=== PATIENT | female | born 1945 | race Hispanic/Latino ===

== ENCOUNTER 2018-03-24 14:57 | Emergency (ER) | payer MEDICARE, SELFPAY ==
--- NOTE | 2018-03-24 15:03 | ED.LOWEXIN ---
HPI - Extremity Injury (Lower) <Samantha King PA-C - Last Filed: 03/24/18 19:42> General Chief Complaint: Extremity Injury, Lower Stated Complaint: Left side hip pain Time Seen by Provider: 03/24/18 15:02 Source: patient Mode of arrival: ambulatory Limitations: no limitations History of Present Illness HPI Narrative: Patient complains of onset of left hip pain 3 days ago. She noticed this upon awakening. She denies any trauma, states she usually walks but had not been walking in a couple of weeks prior due to just being busy. She denies any swelling in the lower leg. She denies any pain in her back or knee. She states that pain is worse with walking, and also moving from sit to stand when she feels quite stiff. She states it is better lying still and does not tend to bother her at rest. She can also have nighttime pain. She has not tried medication heat or ice for this. She denies any other new complaints such as fever, rash, chest pain or dyspnea. States she came here mainly due to not being able to see PCP Related Data Home Medications Medication Instructions Recorded Confirmed MULTIVITAMIN #0 04/03/13 cholecalciferol (vitamin D3) 2,000 iu OR BID #0 12/13/17 03/24/18 [Vitamin D3] magnesium oxide 400 mg OR BID #0 12/13/17 Previous Rx's Medication Instructions Recorded metformin [Glucophage] 500 mg PO QDAY #90 tab 04/19/17 hydrochlorothiazide 25 mg PO QDAY #90 tab 08/22/17 Glucose: Home Monitoring Kit kit QDAY #1 09/06/17 Glucose: Test Strips str SEECOM QDAY #100 09/06/17 Lancet: Device units SEECOM QDAY #100 09/06/17 prazosin [Minipress] 1 mg NG HS #90 cap 09/06/17 simvastatin 40 mg PO HS #90 tab 09/07/17 lurasidone 20 mg tablet 20 mg PO HS #90 tab 03/17/18 Allergies Allergy/AdvReac Type Severity Reaction Status Date / Time iodine Allergy Severe HIVES, Verified 03/24/18 15:58 ANAPHYLAXIS cefotetan Allergy Mild RASH, EDEMA Verified 03/24/18 15:58 morphine AdvReac Mild HALLUCINATI Verified 03/24/18 15:58 ONS Review of Systems <Samantha King PA-C - Last Filed: 03/24/18 19:42> Review of Systems All systems reviewed & are unremarkable except as noted in HPI and below Exam <Samantha King PA-C - Last Filed: 03/24/18 19:42> Narrative Exam Narrative: GENERAL APPEARANCE: Patient sitting comfortably, in no distress. LUNGS: Clear to auscultation bilaterally. HEART: Rate and rhythm regular without murmur, normal S1 and S2, no S3 or S4. EXTREMITIES: No cyanosis or edema MUSCULOSKELETAL: Mild tenderness over the left anterior and lateral hip and greater trochanter. No tenderness over the posterior hip. No tenderness over the lumbosacral spine or SI joint. Full range of motion at the left hip and knee, tender with forced internal rotation and hip flexion against resistance, strength appears to be intact DERM: No exanthem MDM - Extremity Injury (Lower) <Samantha King PA-C - Last Filed: 03/24/18 19:42> Imaging Data hip xr: Radiologist's impression: : 1945 Acct:[id number] Age/Sex: 72 / F Date of Service: 03/24/18 Loc: ED Accession Number: [id number] Procedure: XR hip w pel if done LT 2V Ordering Provider: Samantha King P.A-C PROCEDURE: XR HIP W PEL IF DONE LT 2V INDICATIONS: 72 year-old female with left hip pain. TECHNIQUE: AP pelvis with lateral view(s) of the left hip(s). COMPARISON: [facility], [place], ABDOMEN/PELVIS WITH CONTRAST, 09/12/2008, 14:34. FINDINGS: Bones: No fractures or dislocations. Pelvic ring appears intact. No hip joint degeneration. No suspicious bony lesions. Soft tissues: The visualized bowel gas pattern is normal. No suspicious soft tissue calcifications. Several calcifications just superior to the medial right iliac wing are unchanged in position since August 2008, likely incidental phleboliths. IMPRESSION: No acute bony injury to the left hip and pelvic ring. Dictated by: Jeronimo García M.D. on 03/24/2018 at 15:48 Approved by: Jeronimo García M.D. on 03/24/2018 at 15:50 Course <Samantha King PA-C - Last Filed: 03/24/18 19:42> Orders Ordered: ED Orders 03/24/18 15:23 XR hip w pel if done LT 2V Stat Last Vital Signs Temp 99.4 F 03/24/18 15:08 Pulse 88 03/24/18 16:11 Resp 16 03/24/18 16:11 BP 109/41 L 03/24/18 16:11 Pulse Ox 98 03/24/18 16:11 <Cecilio Del Rio DO - Last Filed: 03/25/18 07:37> Orders Ordered: ED Orders 03/24/18 15:23 XR hip w pel if done LT 2V Stat Last Vital Signs Temp 99.4 F 03/24/18 15:08 Pulse 88 03/24/18 16:11 Resp 16 03/24/18 16:11 BP 109/41 L 03/24/18 16:11 Pulse Ox 98 03/24/18 16:11 Discharge Plan Departure Patient Disposition: Home, Self-Care Clinical Impression: Acute hip pain Discharge Date/Time: 03/24/18 16:15 Interventions: ED Discharge Assessment Last Done: 03/24/18 16:11 Instructions: DI for Hip Pain Activity Restrictions/Additional Instructions: You should return if you have acutely worsening symptoms. There is no acute problem on your x-ray today such as a fracture, nor any arthritis or joint abnormality seen, so this is most likely to be a bursitis or tendinitis of your hip. Kvsy-vit-mhlugyw pain medicine such as 1 Aleve twice daily for a few days or Tylenol as needed may be helpful. Ice and heat may be helpful as well as rest. You should follow up with your PCP office next week for recheck and to determine whether any other testing or a referral for therapy may be needed. Prescriptions: No Action MULTIVITAMIN Qty: 0 RF: 0 metformin [Glucophage] 500 MG tablet 500 mg PO QDAY Qty: 90 RF: 3 hydrochlorothiazide 25 MG tablet 25 mg PO QDAY Qty: 90 RF: 3 prazosin [Minipress] 1 MG capsule 1 mg NG HS Qty: 90 RF: 1 Glucose: Home Monitoring Kit QDAY Qty: 1 RF: 1 Glucose: Test Strips SEECOM QDAY Qty: 100 RF: 11 Lancet: Device SEECOM QDAY Qty: 100 RF: 11 simvastatin 40 MG tablet 40 mg PO HS Qty: 90 RF: 3 magnesium oxide 400 MG capsule 400 mg OR BID Qty: 0 RF: 0 cholecalciferol (vitamin D3) [Vitamin D3] 2,000 UNIT capsule 2,000 iu OR BID Qty: 0 RF: 0 lurasidone [Latuda] 20 mg tablet 20 mg PO HS Qty: 90 RF: 0 Referrals: Ashley Kyle MD [Primary Care Provider] -
[2018-03-24 15:08] VITALS: BP 134/69; PULSE 94; RESP 15; TEMP 37.4; O2SAT 96; BMI 30.2
--- NOTE | 2018-03-24 15:23 | DI.RAD.S_ITS ---
PROCEDURE: XR HIP W PEL IF DONE LT 2V INDICATIONS: 72 year-old female with left hip pain. TECHNIQUE: AP pelvis with lateral view(s) of the left hip(s). COMPARISON: [facility], [place], ABDOMEN/PELVIS WITH CONTRAST, 09/12/2008, 14:34. FINDINGS: Bones: No fractures or dislocations. Pelvic ring appears intact. No hip joint degeneration. No suspicious bony lesions. Soft tissues: The visualized bowel gas pattern is normal. No suspicious soft tissue calcifications. Several calcifications just superior to the medial right iliac wing are unchanged in position since August 2008, likely incidental phleboliths. IMPRESSION: No acute bony injury to the left hip and pelvic ring. Dictated by: Jeronimo García M.D. on 03/24/2018 at 15:48 Approved by: Jeronimo García M.D. on 03/24/2018 at 15:50
--- NOTE | 2018-03-24 16:01 | PC.NURSE ---
No known injury. Patient began experiencing pain with weight bearing. States there is slight pain that radiates down the left leg.
[2018-03-24 16:11] VITALS: BP 109/41; PULSE 88; RESP 16; O2SAT 98
== END 2018-03-24 16:15 | disposition home or self-care (01) ==
PROVIDERS: Emergency Provider Internal Medicine; PCP Family Medicine
DX: M25.552 Pain in left hip (principal)
CPT/HCPCS: 73502; 99282; 99283

== ENCOUNTER 2018-07-13 05:00 | Emergency (ER) | payer MEDICARE, SELFPAY ==
[2018-07-13 05:08] VITALS: BP 123/79; PULSE 88; RESP 20; TEMP 36.7; O2SAT 98; BMI 30.2
--- NOTE | 2018-07-13 05:46 | ED_ITS ---
HPI - Back Pain/Injury General Chief Complaint: Back Pain/Injury Stated Complaint: Pain in lower back Time Seen by Provider: 07/13/18 05:08 Source: patient Mode of arrival: ambulatory Limitations: no limitations History of Present Illness HPI Narrative: 73-year-old female with history of PTSD and bipolar presents with bilateral thoracic pain in the absence of injury. She does admit to recent bouts sneezing and coughing and denies any overuse injury. She denies dysuria, frequency or urgency. She denies any hematuria nor fever or chills. She denies any chest pain or shortness of breath MD Complaint: back pain Onset (ago): hour(s) Duration: constant Similar Symptoms Previously: Yes Location: thoracic spine Severity: moderate Quality: aching Radiation: none Relieving factors: immobilization Exacerbating factors: sitting upright, walking, deep breaths and coughing/ sneezing Context: unknown Associated symptoms: denies other symptoms Related Data Home Medications Medication Instructions Recorded Confirmed cholecalciferol (vitamin D3) 2,000 iu OR BID #0 12/13/17 06/28/18 [Vitamin D3] Previous Rx's Medication Instructions Recorded hydrochlorothiazide 25 mg PO QDAY #90 tab 08/22/17 Glucose: Home Monitoring Kit kit QDAY #1 09/06/17 Glucose: Test Strips str SEECOM QDAY #100 09/06/17 Lancet: Device units SEECOM QDAY #100 09/06/17 prazosin [Minipress] 1 mg NG HS #90 cap 09/06/17 simvastatin 40 mg PO HS #90 tab 09/07/17 naproxen 250 mg tablet 250 mg PO BID PRN #60 tab 05/22/18 lurasidone 20 mg tablet 20 mg PO HS #90 tab 06/23/18 metformin [Glucophage] 500 mg PO QDAY #90 tab 06/27/18 lithium carbonate 300 mg capsule 300 mg PO BEDTIME #14 cap 06/28/18 methocarbamol [Robaxin] 500 mg PO QID #14 tab 07/13/18 Allergies Allergy/AdvReac Type Severity Reaction Status Date / Time iodine Allergy Severe HIVES, Verified 07/13/18 05:48 ANAPHYLAXIS cefotetan Allergy Mild RASH, EDEMA Verified 07/13/18 05:48 morphine AdvReac Mild HALLUCINATI Verified 07/13/18 05:48 ONS Review of Systems Review of Systems All systems reviewed & are unremarkable except as noted in HPI and below Constitutional Denies chills, Denies fever(s), Denies lethargy and Denies weakness Eyes Denies change in vision, Denies eye discharge, Denies irritation and Denies loss of vision ENT Ears, Nose, Mouth, and Throat: Denies change in voice, Denies neck pain and Denies sore throat Cardiovascular Denies chest pain, Denies irregular heart rhythm, Denies lightheadedness, Denies palpitations, Denies dyspnea, Denies dyspnea on exertion and Denies orthopnea Respiratory Denies cough, Denies dyspnea, Denies dyspnea on exertion and Denies wheezing Gastrointestinal Gastrointestinal: Denies abdominal pain, Denies change in bowel habits, Denies diarrhea, Denies nausea and Denies vomiting Genitourinary Denies hematuria, Denies flank pain, Denies urinary incontinence and Denies urinary urgency Musculoskeletal Reports back pain and Denies neck pain Integumentary/Breasts Denies pruritus, Denies erythema, Denies rash and Denies wounds Neurologic Denies confusion, Denies loss of vision and Denies weakness Psychiatric Denies anxiety, Denies confusion, Denies depression, Denies homicidal ideation and Denies suicidal ideation Endocrine Denies palpitations Hematologic/Lymphatic Denies easy bruising Allergic/Immunologic Denies wheezing PFSH Medical History Depression (Chronic) Prediabetes (Chronic) Suicide attempt (Resolved) Surgical History History of cataract removal with insertion of prosthetic lens (Resolved) Status post laparoscopic cholecystectomy (Resolved) Family History Mother Leukemia DMII (diabetes mellitus, type 2) Father Leukemia Social History Smoking Status: Current every day smoker Exam Narrative Exam Narrative: GEN: AOx3 and in mild distress EYES: Pupils are equal, round, and reactive to light and accommodation. Extraoccular muscles are intact bilaterally. There is no subconjunctival hemorrhage or exudate. CHEST: Lungs are clear to auscultation bilaterally and free of wheezes, rales, or rhonchi. Heart rate is regular rhythm, there are no murmurs, clicks, rubs, or gallops. There is no chest wall tenderness. ABD: Abdomen is soft and nontender. There is no guarding or rebound. Bowel sounds are normal in all 4 quadrants. There is no mass or organomegaly. EXT: Full painless ROM of all extremities with no loss of sensation or strength. SKIN: Warm, pink, and dry. No erythema or rash BACK: disulfurizer tender but free of any obvious external abnormalities. Patient exam notes decreased range of motion and muscle spasm, but no CVA tenderness, or vertebral point tenderness. There are no symptoms of cauda equina such as saddle anesthesia, and decreased reflexes, decreased sensation or strength. Initial Vital Signs Initial Vital Signs: Vital Signs Temperature 98.1 F 07/13/18 05:08 Pulse Rate 88 07/13/18 05:08 Respiratory Rate 20 07/13/18 05:08 Blood Pressure 123/79 H 07/13/18 05:08 Pulse Oximetry 98 07/13/18 05:08 Course Orders Ordered: ED Orders 07/13/18 05:40 Urine Microscopic Stat Vital Signs - 8 hr 07/13/18 05:08 07/13/18 06:22 Temperature 98.1 F 98.1 F Pulse Rate 88 88 Respiratory Rate 20 20 Blood Pressure 123/79 H 123/79 H Pulse Oximetry 98 98 MDM - Back Pain/Injury Lab Data Lab Results 07/13/18 Range/Units 05:40 Urine RBC 1-5/hpf (0-5/HPF) Urine WBC None seen (0-5/HPF) Ur Squamous Epith Cells 0-1 /hpf Urine Bacteria None seen (None) Ur Culture Indicated? Cult not indicated Micro UA Comment Not Reportable Discharge Plan Departure Patient Disposition: Home Clinical Impression: Thoracic back pain Discharge Date/Time: 07/13/18 06:48 Interventions: ED Discharge Assessment Last Done: 07/13/18 06:45 Instructions: DI for Thoracic Back Pain Activity Restrictions/Additional Instructions: *You have been diagnosed with [ acute thoracic back pain ] *What to do: *Take medications as directed: Tylenol or Motrin for pain in addition to the muscle relaxer provided which has been electronically transmitted to [facility] *Follow up with your primary care provider in 2-3 days, call for an appointment. Let them know you were seen in the Emergency Department and that we ask that you be seen in follow up *Return to ER if you should have any new, worsening or concerning symptoms , such as [ ] Prescriptions: New methocarbamol [Robaxin] 500 mg tablet 500 mg PO QID Qty: 14 RF: 0 No Action lithium carbonate 300 mg capsule 300 mg PO BEDTIME Qty: 14 RF: 0 hydrochlorothiazide 25 MG tablet 25 mg PO QDAY Qty: 90 RF: 3 prazosin [Minipress] 1 MG capsule 1 mg NG HS Qty: 90 RF: 1 Glucose: Home Monitoring Kit QDAY Qty: 1 RF: 1 Glucose: Test Strips SEECOM QDAY Qty: 100 RF: 11 Lancet: Device SEECOM QDAY Qty: 100 RF: 11 simvastatin 40 MG tablet 40 mg PO HS Qty: 90 RF: 3 cholecalciferol (vitamin D3) [Vitamin D3] 2,000 UNIT capsule 2,000 iu OR BID Qty: 0 RF: 0 lurasidone [Latuda] 20 mg tablet 20 mg PO HS Qty: 90 RF: 0 metformin [Glucophage] 500 mg tablet 500 mg PO QDAY Qty: 90 RF: 3 naproxen 250 mg tablet 250 mg PO BID PRN (Reason: pain) Qty: 60 RF: 0
[2018-07-13 06:00] LABS: Bacteria Urine None Seen; WBC Urine None Seen (0-5/HPF)
[2018-07-13 06:13] LABS: Culture Indicated Urine Cult Not Indicated; RBC Urine 1-5/HPF (0-5/HPF); Squamous Epithelial Cell Urine 0-1 /HPF
[2018-07-13 06:22] VITALS: BP 123/79; PULSE 88; RESP 20; TEMP 36.7; O2SAT 98; BMI 30.2
== END 2018-07-13 06:48 | disposition home or self-care (01) ==
PROVIDERS: Emergency Provider Emergency Medicine; PCP Family Medicine
DX: M54.6 Pain in thoracic spine (principal)
CPT/HCPCS: 81003; 81015; 99282

== ENCOUNTER → 2018-11-15 14:44 | Outpatient (CLI) | payer MEDICARE, SELFPAY ==
[2018-11-15 15:39] LABS: Hemoglobin A1C% w Est Avg Glu 5.8 % (4.0-6.0)
[2018-11-15 15:40] LABS: BUN Creatinine Ratio 26.3 (6-22); Blood Urea Nitrogen 21 mg/dL (7-17); Carbon Dioxide 26 mmol/L (22-32); Chloride 103 mmol/L (98-107); Cholesterol 159 mg/dL (140-199); Estimated Glomerular Filt Rate > 60.0 mL/min (>60); Glucose 109 mg/dL (80-110); HDL Cholesterol 57 mg/dL (40-60); HEMOLYSIS 20 (0-50); LDL Cholesterol Calculated 76 mg/dL (<100); Potassium 3.7 mmol/L (3.4-5.1); Sodium 138 mmol/L (137-145); Triglycerides 130 mg/dL (35-150)
[2018-11-15 16:54] LABS: Vitamin D 25 Hydroxy (D3) 29.5 ng/mL (30.0-100.0)
== END ==
PROVIDERS: PCP Student in an Organized Health Care Education/Training Program; Visit Provider Student in an Organized Health Care Education/Training Program
DX: E11.9 Type 2 diabetes mellitus without complications (principal); E78.2 Mixed hyperlipidemia; E55.9 Vitamin D deficiency, unspecified
CPT/HCPCS: 36415; 80048; 80061; 82306; 83036

== ENCOUNTER 2019-02-10 11:05 | Emergency (ER) | payer MEDICARE, SELFPAY ==
[2019-02-10] VITALS (7 sets, daily range): BP systolic 121–148; BP diastolic 57–71; PULSE 74–85; RESP 18–22; TEMP 37.7–38.5; O2SAT 94–99
[2019-02-10 11:57] LABS: Influenza A and B by PCR Rapid Negative (Negative)
--- NOTE | 2019-02-10 12:06 | DI.RAD.S_ITS ---
PROCEDURE: XR CHEST 2V INDICATIONS: cough, URI symptoms, fever, green sputum. Flu neg. TECHNIQUE: 2 views of the chest were acquired. COMPARISON: [facility], , CHEST 1 VIEW, 08/06/2014, 14:17. FINDINGS: Surgical changes and devices: None. Lungs and pleura: Lungs are clear. No pleural effusions or pneumothorax. Mediastinum: Mediastinal contours are normal. The aorta is tortuous and unfolded. Heart size is normal. Bones and chest wall: No suspicious bony abnormalities. Soft tissues appear unremarkable. IMPRESSION: No evidence acute pulmonary process. Dictated by: Rocco Murillo M.D. on 02/10/2019 at 12:44 Approved by: Rocco Murillo M.D. on 02/10/2019 at 12:44
--- NOTE | 2019-02-10 12:44 | ED.URI ---
HPI - URI/Sore Throat General Chief Complaint: Upper Respiratory Symptoms Stated Complaint: CONGESTION/CHILLS Time Seen by Provider: 02/10/19 11:39 Source: patient Mode of arrival: ambulatory Limitations: no limitations History of Present Illness HPI Narrative: Patient is a 73-year-old female who presents with cough and body aches. She said last week she had laryngitis she was getting better however this week she tried going back to work she now has a cough that is worse at night she overall feels worse than she did last week. Her influenza was tested and is already negative. She has no chest pain or shortness of breath. She has had any nausea vomiting. MD Complaint: fever and cough Relieving factors: nothing Exacerbating factors: nothing Related Data Home Medications Medication Instructions Recorded Confirmed Aspirin PO 11/15/18 01/16/19 Previous Rx's Medication Instructions Recorded simvastatin 40 mg tablet 40 mg PO HS #90 tab 09/26/18 lurasidone 40 mg tablet 40 mg PO DAILY #90 tab 12/06/18 nicotine 14 mg/24 hr daily 1 patch TRANSDERMAL DAILY #14 each 01/16/19 transdermal patch nicotine 7 mg/24 hr daily 1 patch TRANSDERMAL Q24H #7 each 01/16/19 transdermal patch albuterol sulfate 1 puff INHALATION Q4-6H PRN #8 gram 02/10/19 Allergies Allergy/AdvReac Type Severity Reaction Status Date / Time iodine Allergy Severe HIVES, Verified 02/10/19 11:22 ANAPHYLAXIS cefotetan Allergy Mild RASH, EDEMA Verified 02/10/19 11:22 morphine AdvReac Mild HALLUCINATI Verified 02/10/19 11:22 ONS Review of Systems Review of Systems ROS Unobtainable: All systems reviewed & are unremarkable except as noted in HPI and below Constitutional Reports body ache(s), Reports chills, Reports fatigue, Denies frequent falls, Reports poor appetite and Reports weakness Eyes Denies change in vision, Denies eye discharge, Denies irritation and Denies loss of vision ENT Ears, Nose, Mouth, and Throat: Denies dizziness and Reports sore throat Cardiovascular Denies chest pain, Denies irregular heart rhythm, Denies lightheadedness, Denies palpitations, Denies dyspnea, Denies dyspnea on exertion and Denies orthopnea Respiratory Reports cough, Denies dyspnea, Denies dyspnea on exertion and Denies wheezing Gastrointestinal Gastrointestinal: Denies abdominal pain, Denies change in bowel habits, Denies diarrhea, Denies nausea and Denies vomiting Musculoskeletal Denies back pain, Denies muscle weakness, Denies numbness and Denies tingling Integumentary/Breasts Denies pruritus, Denies erythema, Denies rash and Denies wounds Neurologic Denies dizziness, Denies frequent falls, Denies loss of vision, Denies numbness, Denies tingling and Reports weakness Endocrine Reports fatigue and Denies palpitations Allergic/Immunologic Denies wheezing [facility] Medical History Depression (Chronic) Prediabetes (Chronic) Suicide attempt (Resolved) Surgical History History of cataract removal with insertion of prosthetic lens (Resolved) Status post laparoscopic cholecystectomy (Resolved) Family History (Updated 05/08/18 @ 14:50 by Namrata Haddad) Mother Leukemia DMII (diabetes mellitus, type 2) Father Leukemia Social History Smoking Status: Current every day smoker Family History Mother Leukemia DMII (diabetes mellitus, type 2) Father Leukemia Social History Smoking Status: Current every day smoker Exam Initial Vital Signs Initial Vital Signs: Vital Signs Temperature 99.9 F H 02/10/19 11:10 Pulse Rate 79 02/10/19 11:10 Respiratory Rate 22 02/10/19 11:10 Blood Pressure 142/68 H 02/10/19 11:10 Pulse Oximetry 96 02/10/19 11:10 GENERAL: Alert elderly female appears to not feel well HEENT: Head atraumatic,EOMI, pupils reactive, face symmetric, [moist] mucous membranes CARDIOVASCULAR: Regular rate and rhythm without murmurs, rubs or gallops. RESPIRATORY: Breath sounds equal bilaterally, no wheezes rales or rhonchi. Deep cough with deep breathing ABDOMEN: Soft, nontender. Normoactive bowel sounds all 4 quadrants. No guarding or rebound. EXTREMITIES: Normal range of motion, no clubbing or edema. Neurovascularly intact NEUROLOGICAL: Alert and oriented x4.Normal gait and speech. SKIN: Warm, dry, no laceration, no petechiae, no rashes or lesions. Course Orders Ordered: ED Orders 02/10/19 11:15 Influenza A and B by PCR Rapid Stat 02/10/19 12:06 XR chest 2V Stat 02/10/19 13:22 Basic Metabolic Panel Stat Complete Blood Count AUTO DIFF Stat Discontinued Medications Albuterol/Ipratropium (Duoneb) 3 ml INH NOW ONE Stop: 02/10/19 12:58 Last Admin: 02/10/19 13:19 Dose: 3 ml Sodium Chloride (Normal Saline 0.9%) 1,000 mls @ 1,000 mls/hr IV BOLUS ONE Stop: 02/10/19 13:56 Last Admin: 02/10/19 13:38 Dose: 1,000 mls/hr Vital Signs - 8 hr 02/10/19 11:10 02/10/19 13:20 02/10/19 13:30 Temperature 99.9 F H Pulse Rate 79 74 74 Respiratory Rate 22 18 Blood Pressure 142/68 H Blood Pressure [Left Arm] 148/70 H Blood Pressure [Right Arm] 148/70 H Pulse Oximetry 96 99 95 02/10/19 13:33 02/10/19 13:34 02/10/19 14:30 Temperature Pulse Rate 78 78 75 Respiratory Rate Blood Pressure Blood Pressure [Left Arm] Blood Pressure [Right Arm] 138/57 L Pulse Oximetry 94 98 MDM - URI/Sore Throat Lab Data Attestation: I reviewed the patient's lab results. Result diagrams: 02/10/19 13:22 02/10/19 13:22 Lab Results 02/10/19 02/10/19 02/10/19 Range/Units 11:15 13:22 13:22 WBC 5.8 (4.5-11.0) X10^3/uL RBC 4.59 (4.0-5.2) X10^6/uL Hgb 14.3 (12.0-16.0) g/dL Hct 42.7 (36-46) % MCV 92.9 (80-100) fL MCH 31.2 (26-34) PG MCHC 33.6 (30-36) % RDW 15.4 H (11.6-14.8) % Plt Count 142 L (150-400) X10^3/uL Neut % (Auto) 72.5 (50-75) % Lymph % (Auto) 16.8 L (25-40) % [place] % (Auto) 9.5 (3-14) % Eos % (Auto) 0.3 L (2-4) % Baso % (Auto) 0.9 (0-2) % Neut # (Auto) 4200 (2823-7716) /uL Lymph # (Auto) 1000 L (2702-3410) /uL [place] # (Auto) 600 (0-900) /uL Eos # (Auto) 0 (0-450) /uL Baso # (Auto) 100 (0-100) /uL Sodium 137 (137-145) mmol/L Potassium 4.0 (3.4-5.1) mmol/L Chloride 101 (98-107) mmol/L Carbon Dioxide 27 (22-32) mmol/L BUN 14 (7-17) mg/dL Creatinine 0.70 (0.52-1.04) mg/dL Estimated GFR > 60.0 (>60) mL/min BUN/Creatinine Ratio 20.0 (6-22) Glucose 84 (80-110) mg/dL Calcium 9.1 (8.4-10.2) mg/dL Influenza A & B (PCR) Negative (Negative) Imaging Data Chest x-ray: Radiologist's impression: PROCEDURE: XR CHEST 2V INDICATIONS: cough, URI symptoms, fever, green sputum. Flu neg. TECHNIQUE: 2 views of the chest were acquired. COMPARISON: [facility], CHEST 1 VIEW, 08/06/2014, 14:17. FINDINGS: Surgical changes and devices: None. Lungs and pleura: Lungs are clear. No pleural effusions or pneumothorax. Mediastinum: Mediastinal contours are normal. The aorta is tortuous and unfolded. Heart size is normal. Bones and chest wall: No suspicious bony abnormalities. Soft tissues appear unremarkable. IMPRESSION: No evidence acute pulmonary process. Dictated by: Rocco Murillo M.D. on 02/10/2019 at 12:44 MDM Narrative Medical decision making narrative: Patient overall is feeling much better after albuterol. She has no signs pneumonia no leukocytosis. This is likely more of a bronchitis and upper respiratory like syndrome. Recommended albuterol at home.. She does have quite a deep nonproductive cough consistent with bronchitis, no antibiotics indicated at this time Discharge Plan Departure Patient Disposition: Home Clinical Impression: Upper respiratory infection Qualifiers: URI type: unspecified viral URI Qualified Code(s): J06.9 - Acute upper respiratory infection, unspecified Instructions: DI for Viral Upper Respiratory Infection -- Adult Activity Restrictions/Additional Instructions: *You have been diagnosed with upper respiratory viral infection *What to do: At this time no antibiotics are indicated. X-ray does not show any pneumonia you do not have influenza increase fluid, fever control *Continue to take medications as directed ALBUTEROL 1-2 puffs every 4 hours if needed for chest tightness or cough--> sent to [facility] in [place] Tylenol 650 mg every 4-6 hours if needed for fever Motrin 600 mg every 6-8 hours as needed fever *Follow up with your primary care provider in 2-3 days *Return to ER if you should have increasing shortness of breath, fever not controlled, inability to take in oral fluids or any new, worsening or concerning symptoms Prescriptions: New albuterol sulfate 90 mcg/actuation HFA aerosol inhaler 1 puff INHALATION Q4-6H PRN (Reason: shortness of breath or wheezing) Qty: 8 RF: 0 No Action simvastatin 40 mg tablet 40 mg PO HS Qty: 90 RF: 0 lurasidone [Latuda] 40 mg tablet 40 mg PO DAILY Qty: 90 RF: 1 nicotine 14 mg/24 hr patch 24 hour 1 patch Transdermal DAILY Qty: 14 RF: 0 nicotine 7 mg/24 hr patch 24 hour 1 patch Transdermal Q24H Qty: 7 RF: 0 Aspirin PO RF: 0 Referrals: Heron Sanchez MD [Primary Care Provider] -
--- NOTE | 2019-02-10 12:58 | ED_ITS ---
HPI - URI/Sore Throat General Chief Complaint: Upper Respiratory Symptoms Stated Complaint: CONGESTION/CHILLS Time Seen by Provider: 02/10/19 11:39 Source: patient Mode of arrival: ambulatory Limitations: no limitations History of Present Illness HPI Narrative: Patient is a 73-year-old female who presents with cough and body aches. She said last week she had laryngitis she was getting better however this week she tried going back to work she now has a cough that is worse at night she overall feels worse than she did last week. Her influenza was tested and is already negative. She has no chest pain or shortness of breath. She has had any nausea vomiting. MD Complaint: fever and cough Relieving factors: nothing Exacerbating factors: nothing Related Data Home Medications Medication Instructions Recorded Confirmed Aspirin PO 11/15/18 01/16/19 Previous Rx's Medication Instructions Recorded simvastatin 40 mg tablet 40 mg PO HS #90 tab 09/26/18 lurasidone 40 mg tablet 40 mg PO DAILY #90 tab 12/06/18 nicotine 14 mg/24 hr daily 1 patch TRANSDERMAL DAILY #14 each 01/16/19 transdermal patch nicotine 7 mg/24 hr daily 1 patch TRANSDERMAL Q24H #7 each 01/16/19 transdermal patch albuterol sulfate 1 puff INHALATION Q4-6H PRN #8 gram 02/10/19 Allergies Allergy/AdvReac Type Severity Reaction Status Date / Time iodine Allergy Severe HIVES, Verified 02/10/19 11:22 ANAPHYLAXIS cefotetan Allergy Mild RASH, EDEMA Verified 02/10/19 11:22 morphine AdvReac Mild HALLUCINATI Verified 02/10/19 11:22 ONS Review of Systems Review of Systems ROS Unobtainable: All systems reviewed & are unremarkable except as noted in HPI and below Constitutional Reports body ache(s), Reports chills, Reports fatigue, Denies frequent falls, Reports poor appetite and Reports weakness Eyes Denies change in vision, Denies eye discharge, Denies irritation and Denies loss of vision ENT Ears, Nose, Mouth, and Throat: Denies dizziness and Reports sore throat Cardiovascular Denies chest pain, Denies irregular heart rhythm, Denies lightheadedness, Denies palpitations, Denies dyspnea, Denies dyspnea on exertion and Denies orthopnea Respiratory Reports cough, Denies dyspnea, Denies dyspnea on exertion and Denies wheezing Gastrointestinal Gastrointestinal: Denies abdominal pain, Denies change in bowel habits, Denies diarrhea, Denies nausea and Denies vomiting Musculoskeletal Denies back pain, Denies muscle weakness, Denies numbness and Denies tingling Integumentary/Breasts Denies pruritus, Denies erythema, Denies rash and Denies wounds Neurologic Denies dizziness, Denies frequent falls, Denies loss of vision, Denies numbness, Denies tingling and Reports weakness Endocrine Reports fatigue and Denies palpitations Allergic/Immunologic Denies wheezing [facility] Medical History Depression (Chronic) Prediabetes (Chronic) Suicide attempt (Resolved) Surgical History History of cataract removal with insertion of prosthetic lens (Resolved) Status post laparoscopic cholecystectomy (Resolved) Family History (Updated 05/08/18 @ 14:50 by Namrata Haddad) Mother Leukemia DMII (diabetes mellitus, type 2) Father Leukemia Social History Smoking Status: Current every day smoker Family History Mother Leukemia DMII (diabetes mellitus, type 2) Father Leukemia Social History Smoking Status: Current every day smoker Exam Initial Vital Signs Initial Vital Signs: Vital Signs Temperature 99.9 F H 02/10/19 11:10 Pulse Rate 79 02/10/19 11:10 Respiratory Rate 22 02/10/19 11:10 Blood Pressure 142/68 H 02/10/19 11:10 Pulse Oximetry 96 02/10/19 11:10 GENERAL: Alert elderly female appears to not feel well HEENT: Head atraumatic,EOMI, pupils reactive, face symmetric, [moist] mucous membranes CARDIOVASCULAR: Regular rate and rhythm without murmurs, rubs or gallops. RESPIRATORY: Breath sounds equal bilaterally, no wheezes rales or rhonchi. Deep cough with deep breathing ABDOMEN: Soft, nontender. Normoactive bowel sounds all 4 quadrants. No guarding or rebound. EXTREMITIES: Normal range of motion, no clubbing or edema. Neurovascularly intact NEUROLOGICAL: Alert and oriented x4.Normal gait and speech. SKIN: Warm, dry, no laceration, no petechiae, no rashes or lesions. Course Orders Ordered: ED Orders 02/10/19 11:15 Influenza A and B by PCR Rapid Stat 02/10/19 12:06 XR chest 2V Stat 02/10/19 13:22 Basic Metabolic Panel Stat Complete Blood Count AUTO DIFF Stat Discontinued Medications Albuterol/Ipratropium (Duoneb) 3 ml INH NOW ONE Stop: 02/10/19 12:58 Last Admin: 02/10/19 13:19 Dose: 3 ml Sodium Chloride (Normal Saline 0.9%) 1,000 mls @ 1,000 mls/hr IV BOLUS ONE Stop: 02/10/19 13:56 Last Admin: 02/10/19 13:38 Dose: 1,000 mls/hr Vital Signs - 8 hr 02/10/19 11:10 02/10/19 13:20 02/10/19 13:30 Temperature 99.9 F H Pulse Rate 79 74 74 Respiratory Rate 22 18 Blood Pressure 142/68 H Blood Pressure [Left Arm] 148/70 H Blood Pressure [Right Arm] 148/70 H Pulse Oximetry 96 99 95 02/10/19 13:33 02/10/19 13:34 02/10/19 14:30 Temperature Pulse Rate 78 78 75 Respiratory Rate Blood Pressure Blood Pressure [Left Arm] Blood Pressure [Right Arm] 138/57 L Pulse Oximetry 94 98 MDM - URI/Sore Throat Lab Data Attestation: I reviewed the patient's lab results. Result diagrams: 02/10/19 13:22 02/10/19 13:22 Lab Results 02/10/19 02/10/19 02/10/19 Range/Units 11:15 13:22 13:22 WBC 5.8 (4.5-11.0) X10^3/uL RBC 4.59 (4.0-5.2) X10^6/uL Hgb 14.3 (12.0-16.0) g/dL Hct 42.7 (36-46) % MCV 92.9 (80-100) fL MCH 31.2 (26-34) PG MCHC 33.6 (30-36) % RDW 15.4 H (11.6-14.8) % Plt Count 142 L (150-400) X10^3/uL Neut % (Auto) 72.5 (50-75) % Lymph % (Auto) 16.8 L (25-40) % [place]ima % (Auto) 9.5 (3-14) % Eos % (Auto) 0.3 L (2-4) % Baso % (Auto) 0.9 (0-2) % Neut # (Auto) 4200 (9825-0098) /uL Lymph # (Auto) 1000 L (1477-6543) /uL Pima # (Auto) 600 (0-900) /uL Eos # (Auto) 0 (0-450) /uL Baso # (Auto) 100 (0-100) /uL Sodium 137 (137-145) mmol/L Potassium 4.0 (3.4-5.1) mmol/L Chloride 101 (98-107) mmol/L Carbon Dioxide 27 (22-32) mmol/L BUN 14 (7-17) mg/dL Creatinine 0.70 (0.52-1.04) mg/dL Estimated GFR > 60.0 (>60) mL/min BUN/Creatinine Ratio 20.0 (6-22) Glucose 84 (80-110) mg/dL Calcium 9.1 (8.4-10.2) mg/dL Influenza A & B (PCR) Negative (Negative) Imaging Data Chest x-ray: Radiologist's impression: PROCEDURE: XR CHEST 2V INDICATIONS: cough, URI symptoms, fever, green sputum. Flu neg. TECHNIQUE: 2 views of the chest were acquired. COMPARISON: [facility], CHEST 1 VIEW, 08/06/2014, 14:17. FINDINGS: Surgical changes and devices: None. Lungs and pleura: Lungs are clear. No pleural effusions or pneumothorax. Mediastinum: Mediastinal contours are normal. The aorta is tortuous and unfolded. Heart size is normal. Bones and chest wall: No suspicious bony abnormalities. Soft tissues appear unremarkable. IMPRESSION: No evidence acute pulmonary process. Dictated by: Rocco Murillo M.D. on 02/10/2019 at 12:44 MDM Narrative Medical decision making narrative: Patient overall is feeling much better after albuterol. She has no signs pneumonia no leukocytosis. This is likely more of a bronchitis and upper respiratory like syndrome. Recommended albuterol at home.. She does have quite a deep nonproductive cough consistent with bronchitis, no antibiotics indicated at this time Discharge Plan Departure Patient Disposition: Home Clinical Impression: Upper respiratory infection Qualifiers: URI type: unspecified viral URI Qualified Code(s): J06.9 - Acute upper respi ratory infection, unspecified Instructions: DI for Viral Upper Respiratory Infection -- Adult Activity Restrictions/Additional Instructions: *You have been diagnosed with upper respiratory viral infection *What to do: At this time no antibiotics are indicated. X-ray does not show a ny pneumonia you do not have influenza increase fluid, fever control *Continue to take medications as directed ALBUTEROL 1-2 puffs every 4 hours if needed for chest tightness or cough--> sent to [facility] in [place] Tylenol 650 mg every 4-6 hours if needed for fever Motrin 600 mg every 6-8 hours as needed fever *Follow up with your primary care provider in 2-3 days *Return to ER if you should have increasing shortness of breath, fever not controlled, inability to take in oral fluids or any new, worsening or concerning symptoms Prescriptions: New albuterol sulfate 90 mcg/actuation HFA aerosol inhaler 1 puff INHALATION Q4-6H PRN (Reason: shortness of breath or wheezing) Qty: 8 RF: 0 No Action simvastatin 40 mg tablet 40 mg PO HS Qty: 90 RF: 0 lurasidone [Latuda] 40 mg tablet 40 mg PO DAILY Qty: 90 RF: 1 nicotine 14 mg/24 hr patch 24 hour 1 patch Transdermal DAILY Qty: 14 RF: 0 nicotine 7 mg/24 hr patch 24 hour 1 patch Transdermal Q24H Qty: 7 RF: 0 Aspirin PO RF: 0 Referrals: Heron Sanchez MD [Primary Care Provider] -
[2019-02-10] MEDS: ALBUTEROL/IPRATROPIUM 3 ML AMPUL INH (13:19)
[2019-02-10] MEDS: SODIUM CHLORIDE 0.9% 1,000 ML 1000 ML IV (13:38)
[2019-02-10 13:50] LABS: Add Manual Diff / Slide Review NO; Basophils Absolute Auto 100 /uL (0-100); Basophils Percent Auto 0.9 % (0-2); Eosinophils Absolute Auto 0 /uL (0-450); Eosinophils Percent Auto 0.3 % (2-4); Hematocrit 42.7 % (36-46); Hemoglobin 14.3 g/dL (12.0-16.0); Lymphocytes Absolute Auto 1000 /uL (1100-4500); Lymphocytes Percent Auto 16.8 % (25-40); Mean Corpuscular HGB Conc 33.6 % (30-36); Mean Corpuscular Hemoglobin 31.2 PG (26-34); Mean Corpuscular Volume 92.9 fL (80-100); Monocytes Absolute Auto 600 /uL (0-900); Monocytes Percent Auto 9.5 % (3-14); Neutrophils Absolute Auto 4200 /uL (1500-7000); Neutrophils Percent Auto 72.5 % (50-75); Platelet Count 142 X10^3/uL (150-400); Red Blood Cell Count 4.59 X10^6/uL (4.0-5.2); Red Cell Distribution Width 15.4 % (11.6-14.8); White Blood Cell Count 5.8 X10^3/uL (4.5-11.0)
[2019-02-10 14:01] LABS: Blood Urea Nitrogen 14 mg/dL (7-17); Calcium 9.1 mg/dL (8.4-10.2); Carbon Dioxide 27 mmol/L (22-32); Chloride 101 mmol/L (98-107); Estimated Glomerular Filt Rate > 60.0 mL/min (>60); Glucose 84 mg/dL (80-110); HEMOLYSIS 36 (0-50); Sodium 137 mmol/L (137-145)
== END 2019-02-10 15:32 | disposition home or self-care (01) ==
PROVIDERS: Emergency Provider Emergency Medicine; PCP Student in an Organized Health Care Education/Training Program
DX: J06.9 Acute upper respiratory infection, unspecified (principal)
CPT/HCPCS: 36415; 36591; 71046; 80048; 85025; 87400; 94640; 96360; 96361; 99283; 99284

== ENCOUNTER 2019-02-14 16:05 | Emergency (ER) | payer MEDICARE, SELFPAY ==
[2019-02-14 16:07] VITALS: BP 136/80; PULSE 79; RESP 20; TEMP 37.3; O2SAT 95
[2019-02-14 18:15] VITALS: BP 145/75; PULSE 76; RESP 20; TEMP 36.6; O2SAT 95
[2019-02-14 19:00] VITALS: BP 142/78; PULSE 73; RESP 18; O2SAT 97
--- NOTE | 2019-02-14 19:56 | DI.RAD.S_ITS ---
PROCEDURE: XR ACUTE ABDOMEN SERIES INDICATIONS: Abdominal pain TECHNIQUE: One view chest and two views of the abdomen were acquired. COMPARISON: [facility], , XR CHEST 2V, 02/10/2019, 12:13. [facility], , ABDOMEN ACUTE SERIES, 07/21/2014, 23:04. FINDINGS: Surgical changes and devices: Surgical clips are redemonstrated in the right upper quadrant. Chest: Lungs are clear. Heart size is normal. No pleural effusions. No pneumoperitoneum. Abdomen: Bowel gas pattern demonstrates a moderate amount of colonic stool in the descending and transverse colon which may reflect constipation. There is gas demonstrated within the small and large bowel. No air-fluid levels. No suspicious calcifications. Bones: No suspicious bony lesions. IMPRESSION: 1. Moderate colonic stool proximally may reflect constipation. No definite evidence of obstruction. 2. No acute cardiopulmonary disease. Dictated by: Jovany Coleman M.D. on 02/14/2019 at 20:49 Approved by: Jovany Coleman M.D. on 02/14/2019 at 20:50
[2019-02-14 20:00] VITALS: BP 155/72
[2019-02-14 20:40] VITALS: PULSE 79; RESP 20; O2SAT 97
--- NOTE | 2019-02-15 03:07 | ED.ABDPAIN ---
HPI - Abdominal Pain General Chief Complaint: Abdominal Pain Stated Complaint: Pain L side Time Seen by Provider: 02/14/19 18:00 Source: patient Mode of arrival: ambulatory Limitations: no limitations History of Present Illness HPI narrative: 73-year-old female nonsmoker returns to the emergency department for the 2nd time this week. She was seen a few days ago for a viral upper respiratory infection. She denies any purulence pudendum, fever or vomiting but does admit to ongoing coughing. She states that with coughing she has sharp pain to her left anterior abdomen which improves with rest. She has no pain when sitting still, not coughing and not having a bowel movement but has severe sharp pain with those activities. MD complaint: abdominal pain Onset (ago): day(s) Pain Consistency: intermittent Location: LLQ Severity: mild Quality: stabbing Radiation: none Migration to: no migration Relieving factors: rest Exacerbating factors: movement Context: sick contacts Associated symptoms: fever Related Data Home Medications Medication Instructions Recorded Confirmed Aspirin PO 11/15/18 01/16/19 Previous Rx's Medication Instructions Recorded simvastatin 40 mg tablet 40 mg PO HS #90 tab 09/26/18 lurasidone 40 mg tablet 40 mg PO DAILY #90 tab 12/06/18 nicotine 14 mg/24 hr daily 1 patch TRANSDERMAL DAILY #14 each 01/16/19 transdermal patch nicotine 7 mg/24 hr daily 1 patch TRANSDERMAL Q24H #7 each 01/16/19 transdermal patch albuterol sulfate 1 puff INHALATION Q4-6H PRN #8 gram 02/10/19 Allergies Allergy/AdvReac Type Severity Reaction Status Date / Time iodine Allergy Severe HIVES, Verified 02/10/19 11:22 ANAPHYLAXIS cefotetan Allergy Mild RASH, EDEMA Verified 02/10/19 11:22 morphine AdvReac Mild HALLUCINATI Verified 02/10/19 11:22 ONS Review of Systems Constitutional Denies chills, Denies fever(s), Denies lethargy and Denies weakness Eyes Denies change in vision, Denies eye discharge, Denies irritation and Denies loss of vision ENT Ears, Nose, Mouth, and Throat: Denies change in voice, Reports nasal congestion, Reports nasal discharge, Denies neck pain and Denies sore throat Cardiovascular Denies chest pain, Denies irregular heart rhythm, Denies lightheadedness, Denies palpitations, Denies dyspnea, Denies dyspnea on exertion and Denies orthopnea Respiratory Reports cough, Denies dyspnea, Denies dyspnea on exertion and Denies wheezing Gastrointestinal Gastrointestinal: Reports abdominal pain, Denies change in bowel habits, Denies diarrhea, Denies nausea and Denies vomiting Genitourinary Denies hematuria, Denies flank pain, Denies urinary incontinence and Denies urinary urgency Musculoskeletal Denies neck pain Integumentary/Breasts Denies pruritus, Denies erythema, Denies rash and Denies wounds Neurologic Denies confusion, Denies loss of vision and Denies weakness Psychiatric Denies anxiety, Denies confusion, Denies depression, Denies homicidal ideation and Denies suicidal ideation Endocrine Denies palpitations Hematologic/Lymphatic Denies easy bruising Allergic/Immunologic Denies wheezing [facility] Medical History Depression (Chronic) Prediabetes (Chronic) Suicide attempt (Resolved) Surgical History History of cataract removal with insertion of prosthetic lens (Resolved) Status post laparoscopic cholecystectomy (Resolved) Family History Mother Leukemia DMII (diabetes mellitus, type 2) Father Leukemia Social History Smoking Status: Current every day smoker Family History Mother Leukemia DMII (diabetes mellitus, type 2) Father Leukemia Social History Smoking Status: Current every day smoker Exam Narrative Exam Narrative: GENERAL: 73-year-old female appears stated age, resting comfortably HEAD: Atraumatic. Normocephalic. No temporal or scalp tenderness. EYES: Pupils equal round and reactive. Extraocular motions intact. No scleral icterus. No injection or drainage. ENT: A clear nasal drainage Nose without bleeding, purulent drainage or septal hematoma. NECK: Trachea midline. CARDIOVASCULAR: Regular rate and rhythm RESPIRATORY: Clear to auscultation. Breath sounds equal bilaterally. No wheezes, rales, or rhonchi. GASTROINTESTINAL: Abdomen soft, mild left lower quadrant tenderness to palpation, nondistended. tenderness does not appear to be deep, is most consistent with abdominal wall pain No hepato-splenomegaly, or palpable masses. No guarding. EXTREMITIES: No clubbing, cyanosis, or edema. No joint tenderness, effusion, or edema noted. BACK: Nontender without deformity or crepitance. No flank tenderness. NEURO: AOx3. SKIN: No rash or erythema. Initial Vital Signs Initial Vital Signs: Vital Signs Temperature 99.2 F 02/14/19 16:07 Pulse Rate 79 02/14/19 16:07 Respiratory Rate 20 02/14/19 16:07 Blood Pressure 136/80 02/14/19 16:07 Pulse Oximetry 95 02/14/19 16:07 Course Orders Ordered: ED Orders 02/14/19 19:56 XR acute abdomen series Stat Vital Signs - 8 hr 02/14/19 20:00 02/14/19 20:40 Pulse Rate 79 Respiratory Rate 20 Blood Pressure [Right Arm] 155/72 H Pulse Oximetry 97 MDM - Abdominal Pain Imaging Data Abdominal x-ray: Radiologist's impression: [address] [address] XRay Report Signed Patient: Jackie Nieto [facility]#: [id number] : 3Acct:[id number] Age/Sex: 73 / FDate of Service: 02/14/19 Loc: ED Accession Number: [id number] Procedure: XR acute abdomen series Ordering Provider: Cecilio Del Rio D.O. PROCEDURE: XR ACUTE ABDOMEN SERIES INDICATIONS: Abdominal pain TECHNIQUE: One view chest and two views of the abdomen were acquired. COMPARISON: [facility], , XR CHEST 2V, 02/10/2019, 12:13. [facility], , ABDOMEN ACUTE SERIES, 07/21/2014, 23:04. FINDINGS: Surgical changes and devices: Surgical clips are redemonstrated in the right upper quadrant. Chest: Lungs are clear. Heart size is normal. No pleural effusions. No pneumoperitoneum. Abdomen: Bowel gas pattern demonstrates a moderate amount of colonic stool in the descending and transverse colon which may reflect constipation. There is gas demonstrated within the small and large bowel. No air-fluid levels. No suspicious calcifications. Bones: No suspicious bony lesions. IMPRESSION: 1. Moderate colonic stool proximally may reflect constipation. No definite evidence of obstruction. 2. No acute cardiopulmonary disease. Dictated by: Jovany Coleman M.D. on 02/14/2019 at 20:49 Approved by: Jovany Coleman M.D. on 02/14/2019 at 20:50 Discharge Plan Departure Patient Disposition: Home Clinical Impression: Abdominal pain Qualifiers: Abdominal location: left lower quadrant Qualified Code(s): R10.32 - Left lower quadrant pain Constipation Qualifiers: Constipation type: other constipation type Qualified Code(s): K59.09 - Other constipation Discharge Date/Time: 02/14/19 20:45 Interventions: ED Discharge Assessment Last Done: 02/14/19 20:45 Instructions: DI for Constipation Activity Restrictions/Additional Instructions: *You have been diagnosed with [ abdominal pain due to constipation and abdominal wall strain] *What to do: *Take over the counter medications as directed: 1. Magnesium Citrate - brings water into your bowel 2. Colace - softens your stool 3. Dulcolax - stiumlates your bowels *Follow up with your primary care provider in 2-3 days, call for appointment *Return to ER if you should have any new, worsening or concerning symptoms *Drink plenty of water and eat foods high in fiber Prescriptions: No Action simvastatin 40 mg tablet 40 mg PO HS Qty: 90 RF: 0 lurasidone [Latuda] 40 mg tablet 40 mg PO DAILY Qty: 90 RF: 1 nicotine 14 mg/24 hr patch 24 hour 1 patch Transdermal DAILY Qty: 14 RF: 0 nicotine 7 mg/24 hr patch 24 hour 1 patch Transdermal Q24H Qty: 7 RF: 0 Aspirin PO RF: 0 albuterol sulfate 90 mcg/actuation HFA aerosol inhaler 1 puff INHALATION Q4-6H PRN (Reason: shortness of breath or wheezing) Qty: 8 RF: 0 Referrals: Heron Sanchez MD [Primary Care Provider] -
== END 2019-02-14 20:45 | disposition home or self-care (01) ==
PROVIDERS: Emergency Provider Emergency Medicine; PCP Student in an Organized Health Care Education/Training Program
DX: R10.32 Left lower quadrant pain (principal); K59.09 Other constipation
CPT/HCPCS: 74022; 99283

== ENCOUNTER → 2019-06-30 07:52 | Outpatient (CLI) | payer MEDICARE, SELFPAY ==
[2019-06-30 09:17] LABS: BUN Creatinine Ratio 17.5 (6-22); Blood Urea Nitrogen 14 mg/dL (7-17); Calcium 9.5 mg/dL (8.4-10.2); Carbon Dioxide 28 mmol/L (22-32); Chloride 106 mmol/L (98-107); Estimated Glomerular Filt Rate > 60.0 mL/min (>60); Glucose 116 mg/dL (80-110); HEMOLYSIS < 15 (0-50); Potassium 3.8 mmol/L (3.4-5.1); Sodium 141 mmol/L (137-145)
[2019-06-30 09:19] LABS: Hemoglobin A1C% w Est Avg Glu 5.5 % (4.0-6.0)
[2019-06-30 09:47] LABS: Cortisol AM (Before 10AM) 19.1 ug/dL (4.46-22.7); TSH w/ Reflex to FT4 2.46 uIU/mL (0.47-4.68)
[2019-06-30 10:06] LABS: Vitamin B12 529 pg/mL (239-931)
== END ==
PROVIDERS: PCP Student in an Organized Health Care Education/Training Program; Visit Provider Student in an Organized Health Care Education/Training Program
DX: F41.1 Generalized anxiety disorder (principal); E11.9 Type 2 diabetes mellitus without complications; I10 Essential (primary) hypertension
CPT/HCPCS: 36415; 80048; 82533; 82607; 83036; 84443

== ENCOUNTER 2020-06-14 19:34 | Emergency (ER) | payer MEDICARE, MEDICAID, SELFPAY ==
[2020-06-14 19:45] VITALS: BP 151/71; PULSE 72; RESP 14; TEMP 36.3; O2SAT 99
--- NOTE | 2020-06-14 20:06 | ED_ITS ---
HPI - Psych General Chief Complaint: Psychiatric Symptoms Stated Complaint: Depression and SI Time Seen by Provider: 06/14/20 19:50 Source: patient Mode of arrival: Ambulatory Limitations: no limitations History of Present Illness HPI Narrative: 74F daily smoker with history of PTSD, DM, HTN and previous suicide attempt presents feeling severely depressed with difficulty sleeping and decreased appetite for the past few days. She denies any ongoing suicidal thoughts, homicidal thoughts. She admits that her trigger is the upcoming anniversary of the untimely of her son. She admits that she started having thoughts of self harm and then gave her medications to her and came to see us. She has no plan, and feels much better now. She wants be sure that her trouble sleeping and feeling tired isn't from a medical problem. She has a local mental health provider. Related Data Home Medications Medication Instructions Recorded Confirmed lurasidone 80 mg PO BEDTIME 06/14/20 06/14/20 Previous Rx's Medication Instructions Recorded simvastatin 40 mg tablet 40 mg PO HS #90 tab 09/11/19 Allergies Allergy/AdvReac Type Severity Reaction Status Date / Time iodine Allergy Severe seafood Verified 06/14/20 19:51 HIVES, ANAPHYLAXIS cefotetan Allergy Mild RASH, EDEMA Verified 06/14/20 19:51 morphine AdvReac Mild HALLUCINATI Verified 06/14/20 19:51 ONS Review of Systems Constitutional Constitutional: Denies chills, Reports fatigue, Denies fever(s), Denies frequent falls and Denies lethargy Eyes Eyes: Denies change in vision, Denies eye discharge, Denies irritation and Denies loss of vision ENT Ears, Nose, Mouth, and Throat: Denies change in voice, Denies dizziness, Denies neck pain, Denies sore throat and Denies throat swelling Cardiovascular Cardiovascular: Denies chest pain, Denies irregular heart rhythm, Denies lightheadedness, Denies palpitations, Denies dyspnea, Denies dyspnea on exertion and Denies orthopnea Respiratory Respiratory: Denies cough, Denies dyspnea, Denies dyspnea on exertion and Denies wheezing Gastrointestinal Gastrointestinal: Denies abdominal pain, Denies change in bowel habits, Denies diarrhea, Denies nausea and Denies vomiting Musculoskeletal Musculoskeletal: Denies neck pain and Denies numbness Integumentary/Breasts Skin/Breast: Denies pruritus, Denies erythema, Denies rash and Denies wounds Neurologic Neurologic: Denies behavioral changes, Denies confusion, Denies dizziness, Denies frequent falls, Denies loss of vision and Denies numbness Psychiatric Psychiatric: Denies anxiety, Denies behavioral changes, Denies confusion, Reports depression, Denies homicidal ideation and Reports suicidal ideation (resolved on arrival. No plan) Endocrine Endocrine: Reports fatigue, Denies flushing and Denies palpitations Hematologic/Lymphatic Hematologic/Lymphatic: Denies easy bruising Allergic/Immunologic Allergic/Immunologic: Denies urticaria, Denies throat swelling and Denies wheezing Patient History Medical History Depression (Chronic) Prediabetes (Chronic) Suicide attempt (Resolved) Surgical History History of cataract removal with insertion of prosthetic lens (Resolved) Status post laparoscopic cholecystectomy (Resolved) Family History Mother Leukemia DMII (diabetes mellitus, type 2) Father Leukemia Social History Smoking Status: Current every day smoker Tobacco: How many years used: 20 quit status: has quit before second hand exposure: Yes (my smokes too.) alcohol intake: current substance use type: does not use Smoking Status: Current every day smoker alcohol intake frequency: a few times a week Substance Use Type: does not use Exam Narrative Exam Narrative: GENERAL: [74] year old patient appears stated age. Well- nourished, well-developed patient, in mild distress. tearful HEAD: Atraumatic. Normocephalic. EYES: Pupils equal round and reactive. Extraocular motions intact. No scleral icterus. No injection or drainage. ENT: Nose without bleeding, purulent drainage. Throat without erythema, tonsillar hypertrophy or exudate. Airway patent. NECK: Trachea midline. Non tender CARDIOVASCULAR: Regular rate and rhythm without murmurs, gallops, or rubs. RESPIRATORY: Clear to auscultation. Breath sounds equal bilaterally. No wheezes, rales, or rhonchi. GASTROINTESTINAL: Abdomen soft, non-tender, nondistended. EXTREMITIES: No edema or joint tenderness. BACK: Nontender without deformity or crepitance. No flank tenderness. NEURO: AOx3. SKIN: No rash or erythema of visible areas Initial Vital Signs Initial Vital Signs: Vital Signs Temperature 97.4 F L 06/14/20 19:45 Pulse Rate 72 06/14/20 19:45 Respiratory Rate 14 06/14/20 19:45 Blood Pressure 151/71 H 06/14/20 19:45 Pulse Oximetry 99 06/14/20 19:45 Course Course Course Narrative: OVERSEER KOSHER KITCHEN involved early. Please see his note for details of his conversations patient wants help, is voluntary, has no ongoing SI/plan, can contract for safety, has good insight and support. Orders Ordered: ED Orders 06/14/20 20:00 Consult to OVERSEER KOSHER KITCHEN - Diesel [employer] Stat 06/14/20 20:10 Acetaminophen Stat Complete Blood Count AUTO DIFF Stat Comprehensive Metabolic Panel Stat Ethanol (ETOH) Stat Salicylate Stat Thyroid Stimulating Hormone Stat 06/14/20 20:45 Urinalysis and Microscopic Stat Urine Culture Stat Urine Drug Screen, Rapid Stat Vital Signs Vital signs: Vital Signs - 8 hr 06/14/20 19:45 Temperature 97.4 F L Pulse Rate 72 Respiratory Rate 14 Blood Pressure 151/71 H Pulse Oximetry 99 MDM - Psych Lab Data Result diagrams: 06/14/20 20:10 06/14/20 20:10 Labs: Lab Results 06/14/20 06/14/20 06/14/20 Range/Units 20:10 20:10 20:10 WBC 8.1 (4.5-11.0) X10^3/uL RBC 4.47 (4.0-5.2) X10^6/uL Hgb 14.5 (12.0-16.0) g/dL Hct 42.5 (36-46) % MCV 95.0 (80-100) fL MCH 32.5 (26-34) PG MCHC 34.2 (30-36) % RDW 14.7 (11.6-14.8) % Plt Count 168 (150-400) X10^3/uL Neut % (Auto) 65.1 (50-75) % Lymph % (Auto) 25.5 (25-40) % Tillman % (Auto) 6.8 (3-14) % Eos % (Auto) 1.5 L (2-4) % Baso % (Auto) 1.1 (0-2) % Neut # (Auto) 5300 (3471-8234) /uL Lymph # (Auto) 2100 (8272-7917) /uL Tillman # (Auto) 600 (0-900) /uL Eos # (Auto) 100 (0-450) /uL Baso # (Auto) 100 (0-100) /uL Sodium 136 L (137-145) mmol/L Potassium 3.7 (3.4-5.1) mmol/L Chloride 104 (98-107) mmol/L Carbon Dioxide 28 (22-32) mmol/L BUN 18 H (7-17) mg/dL Creatinine 1.06 H (0.52-1.04) mg/dL Estimated GFR 50.4 L (>60) mL/min BUN/Creatinine Ratio 17.0 (6-22) Glucose 99 (80-110) mg/dL Calcium 9.6 (8.4-10.2) mg/dL Total Bilirubin 0.5 (0.2-1.3) mg/dL AST 30 (14-36) IU/L ALT 20 (<35) IU/L Alkaline Phosphatase 62 (38-126) U/L Total Protein 7.1 (6.3-8.2) g/dL Albumin 4.2 (3.5-5.0) g/dL Globulin 2.9 (1.7-4.1) g/dL Albumin/Globulin Ratio 1.4 (1.0-2.8) TSH 1.75 (0.47-4.68) uIU/mL Urine Color Urine Appearance Urine pH (4.5-8.0) Ur Specific [place] (1.000-1.035) Urine Protein (Negative) Urine Glucose (UA) (Negative) g/dL Urine Ketones (NEGATIVE) Urine Occult Blood (Negative) Urine Nitrate (Negative) Urine Bilirubin (NEGATIVE) Urine Urobilinogen (0.2) E.U./dL Ur Leukocyte Esterase (NEGATIVE) Urine RBC (0-5/HPF) Urine WBC (0-5/HPF) Ur Squamous Epith Cells (0-5/HPF) Urine Bacteria (None) Ur Culture Indicated? Salicylates 1.1 (<20) mg/dL U Opiates 300ng/mL cut (Negative) Ur Oxycodone Screen (Negative) Urine Methadone Screen (Negative) Acetaminophen < 10 L (10-30) ug/mL Ur Barbiturates Screen (Negative) U Tricyclic Antidepress (Negative) Ur Phencyclidine Scrn (Negative) Ur Amphetamines Screen (Negative) U Methamphetamines Scrn (Negative) Ur MDMA Scrn (Ecstasy) (Negative) U Benzodiazepines Scrn (Negative) Urine Cocaine Screen (Negative) U Marijuana (THC) Screen (Negative) Ethyl Alcohol < 10 ( - 10) mg/dL 06/14/20 06/14/20 Range/Units 20:45 20:45 WBC (4.5-11.0) X10^3/uL RBC (4.0-5.2) X10^6/uL Hgb (12.0-16.0) g/dL Hct (36-46) % MCV (80-100) fL MCH (26-34) PG MCHC (30-36) % RDW (11.6-14.8) % Plt Count (150-400) X10^3/uL Neut % (Auto) (50-75) % Lymph % (Auto) (25-40) % Tillman % (Auto) (3-14) % Eos % (Auto) (2-4) % Baso % (Auto) (0-2) % Neut # (Auto) (8408-7899) /uL Lymph # (Auto) (3460-1361) /uL Tillman # (Auto) (0-900) /uL Eos # (Auto) (0-450) /uL Baso # (Auto) (0-100) /uL Sodium (137-145) mmol/L Potassium (3.4-5.1) mmol/L Chloride (98-107) mmol/L Carbon Dioxide (22-32) mmol/L BUN (7-17) mg/dL Creatinine (0.52-1.04) mg/dL Estimated GFR (>60) mL/min BUN/Creatinine Ratio (6-22) Glucose (80-110) mg/dL Calcium (8.4-10.2) mg/dL Total Bilirubin (0.2-1.3) mg/dL AST (14-36) IU/L ALT (<35) IU/L Alkaline Phosphatase (38-126) U/L Total Protein (6.3-8.2) g/dL Albumin (3.5-5.0) g/dL Globulin (1.7-4.1) g/dL Albumin/Globulin Ratio (1.0-2.8) TSH (0.47-4.68) uIU/mL Urine Color Yellow Urine Appearance Clear Urine pH 7.0 (4.5-8.0) Ur Specific [place] 1.010 (1.000-1.035) Urine Protein Negative (Negative) Urine Glucose (UA) Negative (Negative) g/dL Urine Ketones Negative (NEGATIVE) Urine Occult Blood 2+ H (Negative) Urine Nitrate Negative (Negative) Urine Bilirubin Negative (NEGATIVE) Urine Urobilinogen 0.2 (0.2) E.U./dL Ur Leukocyte Esterase 1+ H (NEGATIVE) Urine RBC 1-5/hpf (0-5/HPF) Urine WBC 1-5/hpf (0-5/HPF) Ur Squamous Epith Cells 0-1 /hpf (0-5/HPF) Urine Bacteria None seen (None) Ur Culture Indicated? Specimen cultured Salicylates (<20) mg/dL U Opiates 300ng/mL cut Negative (Negative) Ur Oxycodone Screen Negative (Negative) Urine Methadone Screen Negative (Negative) Acetaminophen (10-30) ug/mL Ur Barbiturates Screen Negative (Negative) U Tricyclic Antidepress Negative (Negative) Ur Phencyclidine Scrn Negative (Negative) Ur Amphetamines Screen Negative (Negative) U Methamphetamines Scrn Negative (Negative) Ur MDMA Scrn (Ecstasy) Negative (Negative) U Benzodiazepines Scrn Negative (Negative) Urine Cocaine Screen Negative (Negative) U Marijuana (THC) Screen Negative (Negative) Ethyl Alcohol ( - 10) mg/dL Discharge Plan Departure Patient Disposition: Home Clinical Impression: Suicidal ideation Discharge Date/Time: 06/14/20 22:10 Instructions: DI for Suicidal Ideation-Adult Activity Restrictions/Additional Instructions: *You have been diagnosed with [suicidal ideation] *What to do: *Take medications as directed *Follow up with [facility] in [place], *Return to ER if you should have any new, worsening or concerning symptoms Prescriptions: No Action simvastatin 40 mg tablet 40 mg PO HS Qty: 90 RF: 3 lurasidone 80 mg tablet 80 mg PO BEDTIME RF: 0 Referrals: [facility] [Outside] Heron Sanchez MD [Primary Care Provider] -
[2020-06-14 20:19] LABS: Add Manual Diff / Slide Review NO; Basophils Absolute Auto 100 /uL (0-100); Basophils Percent Auto 1.1 % (0-2); Eosinophils Absolute Auto 100 /uL (0-450); Eosinophils Percent Auto 1.5 % (2-4); Hematocrit 42.5 % (36-46); Hemoglobin 14.5 g/dL (12.0-16.0); Lymphocytes Absolute Auto 2100 /uL (1100-4500); Lymphocytes Percent Auto 25.5 % (25-40); Mean Corpuscular HGB Conc 34.2 % (30-36); Mean Corpuscular Hemoglobin 32.5 PG (26-34); Monocytes Absolute Auto 600 /uL (0-900); Monocytes Percent Auto 6.8 % (3-14); Neutrophils Absolute Auto 5300 /uL (1500-7000); Neutrophils Percent Auto 65.1 % (50-75); Platelet Count 168 X10^3/uL (150-400); Red Blood Cell Count 4.47 X10^6/uL (4.0-5.2); Red Cell Distribution Width 14.7 % (11.6-14.8); White Blood Cell Count 8.1 X10^3/uL (4.5-11.0)
[2020-06-14 20:30] LABS: Acetaminophen < 10 ug/mL (10-30); Alanine Aminotransferase 20 IU/L (<35); Albumin 4.2 g/dL (3.5-5.0); Albumin Globulin Ratio 1.4 (1.0-2.8); Alkaline Phosphatase 62 U/L (38-126); Aspartate Aminotransferase 30 IU/L (14-36); Bilirubin Total 0.5 mg/dL (0.2-1.3); Blood Urea Nitrogen 18 mg/dL (7-17); Calcium 9.6 mg/dL (8.4-10.2); Carbon Dioxide 28 mmol/L (22-32); Chloride 104 mmol/L (98-107); Estimated Glomerular Filt Rate 50.4 mL/min (>60); Ethanol (ETOH) < 10 mg/dL; Globulin 2.9 g/dL (1.7-4.1); Glucose 99 mg/dL (80-110); HEMOLYSIS 24 (0-50); Potassium 3.7 mmol/L (3.4-5.1); Salicylate 1.1 mg/dL (<20); Sodium 136 mmol/L (137-145); Total Protein 7.1 g/dL (6.3-8.2)
--- NOTE | 2020-06-14 20:42 | CM.SWNOTE ---
ORGANIZATIONAL EFFECTIVENESS CONSULTANT note ORGANIZATIONAL EFFECTIVENESS CONSULTANT consult requested for patient. Patient is a 74 y/o female who presents to ED with her with stated complaint of increasing depression and SI over the past week. Due to time of admission to ED, this ORGANIZATIONAL EFFECTIVENESS CONSULTANT only available for brief consult. ORGANIZATIONAL EFFECTIVENESS CONSULTANT enters room and introduces self. Patient provides permission for to be in room during assessment. Patient informs ORGANIZATIONAL EFFECTIVENESS CONSULTANT that she has been experiencing fatigue, sadness, loss of lucy, difficulty focusing, and difficulty sleeping for past week. Patient states she has been having feelings of SI all day, and told her daughter and her this afternoon that she had been planning to commit suicide by overdose. Patient reports she has attempted this before, and has made it a point to get limited quantities of her pills since to remove the means of suicide. Patient reports she gave her pills to her , who states that he would be able to hide them from patient in the home. Patient reports that her son 20 years ago, and that his birthday was in June, and this is often a challenging time for her. ORGANIZATIONAL EFFECTIVENESS CONSULTANT validates patient's recurring grief and normalizes the presentation of feelings of sadness around the time of significant dates for a loved one who has since . Patient reports working with a psychiatrist, but not feeling like she gets anything out of it. Patient reports feeling appreciative of psychiatrists minimalist approach to medication, but doesn't feel as though she is given any tools to help her cope outside of the visit. ORGANIZATIONAL EFFECTIVENESS CONSULTANT discusses that some people benefit from counseling from someone other than their psychiatrist, and patient states she is willing to consider contacting an additional counselor. ORGANIZATIONAL EFFECTIVENESS CONSULTANT will discuss adding phone number for [facility] to phsysician d/c notes for additional follow up. Patient and ORGANIZATIONAL EFFECTIVENESS CONSULTANT discuss the importance of following up with psychiatrist soon after this visit to discuss efficacy of current medication as well. Patient denies SI at this time and states she wants to return home tonight. Patient's has indicated that he would hide the medication. Patient does want to know if there is anything on the medical work up (pending at time of chart note) that may explain her current symptoms, but states she would be relieved to know she is not sick. ORGANIZATIONAL EFFECTIVENESS CONSULTANT to update Dr. Del Rio, who will be caring for patient this evening. ORGANIZATIONAL EFFECTIVENESS CONSULTANT will follow up with patient in ED follow-up call later in week. BENJAMIN Mcbride
[2020-06-14 20:53] LABS: Bacteria Urine None Seen
[2020-06-14 20:56] LABS: Appearance Urine UA CLEAR; Bilirubin Urine UA NEGATIVE (NEGATIVE); Color Urine UA YELLOW; Glucose Urine UA NEGATIVE (Negative); Ketones Urine UA NEGATIVE (NEGATIVE); Leukocyte Esterase Urine UA 1+ (NEGATIVE); Nitrite Urine UA NEGATIVE (Negative); Occult Blood Urine UA 2+ (Negative); Protein Urine UA NEGATIVE (Negative); Urobilinogen Urine UA 0.2 E.U./dL (0.2)
[2020-06-14 21:01] LABS: UR Morphine/Opiate cutoff 300 Negative (Negative); Ur Creatinine Normal (Normal); Ur Specific Gravity Normal (Normal); Urine Amphetamines Negative (Negative); Urine Barbiturates Negative (Negative); Urine Benzodiazepines Negative (Negative); Urine Cocaine Negative (Negative); Urine MDMA Negative (Negative); Urine Methadone Negative (Negative); Urine Methamphetamines Negative (Negative); Urine Oxycodone Negative (Negative); Urine Phencyclidine Negative (Negative); Urine Tetrahydrocannabinol Negative (Negative); Urine Tricyclic Antidepressant Negative (Negative); Urine pH Normal (Normal)
[2020-06-14 21:04] LABS: Culture Indicated Urine Specimen Cultured; RBC Urine 1-5/HPF (0-5/HPF); Squamous Epithelial Cell Urine 0-1 /HPF (0-5/HPF); WBC Urine 1-5/HPF (0-5/HPF)
[2020-06-14 21:06] LABS: Thyroid Stimulating Hormone 1.75 uIU/mL (0.47-4.68)
== END 2020-06-14 22:10 | disposition home or self-care (01) ==
PROVIDERS: Emergency Provider Emergency Medicine; PCP Student in an Organized Health Care Education/Training Program; Referring Provider Nurse Practitioner Psychiatric/Mental Health
DX: R45.851 Suicidal ideations (principal)
CPT/HCPCS: 36415; 80053; 80305; 80320; 80329; 81001; 84443; 85025; 87086; 99283; G0480

== ENCOUNTER → 2020-07-21 13:49 | Outpatient (CLI) | payer MEDICARE, MEDICAID, SELFPAY ==
[2020-07-22 17:52] LABS: COVID19 Sendout Not Detected (Not Detect)
== END ==
PROVIDERS: PCP Student in an Organized Health Care Education/Training Program; Visit Provider Nurse Practitioner
DX: Z11.59 Encounter for screening for other viral diseases (principal)
CPT/HCPCS: 87635

== ENCOUNTER → 2020-12-05 10:24 | Outpatient (CLI) | payer MEDICARE, MEDICAID, SELFPAY ==
[2020-12-05 11:14] LABS: BUN Creatinine Ratio 17.8 (6-22); Blood Urea Nitrogen 13 mg/dL (7-17); Calcium 9.3 mg/dL (8.4-10.2); Carbon Dioxide 31 mmol/L (22-32); Chloride 104 mmol/L (98-107); Estimated Glomerular Filt Rate > 60.0 mL/min (>60); Glucose 98 mg/dL (80-110); HEMOLYSIS < 15 (0-50); Sodium 138 mmol/L (137-145)
[2020-12-05 12:02] LABS: Vitamin B12 534 pg/mL (239-931)
[2020-12-05 12:15] LABS: Vitamin D 25 Hydroxy (D3) 27.8 ng/mL (30.0-100.0)
== END ==
PROVIDERS: PCP Student in an Organized Health Care Education/Training Program; Referring Provider Student in an Organized Health Care Education/Training Program; Visit Provider Student in an Organized Health Care Education/Training Program
DX: I10 Essential (primary) hypertension (principal); R73.03 Prediabetes; E55.9 Vitamin D deficiency, unspecified; N17.9 Acute kidney failure, unspecified; F33.2 Major depressive disorder, recurrent severe without psychotic features
CPT/HCPCS: 36415; 80048; 82306; 82607; 83036

== ENCOUNTER → 2020-12-16 12:51 | Outpatient (CLI) | payer MEDICARE, MEDICAID, SELFPAY | PROVIDERS: PCP Student in an Organized Health Care Education/Training Program; Referring Provider Student in an Organized Health Care Education/Training Program; Visit Provider Student in an Organized Health Care Education/Training Program | DX: M85.852 Other specified disorders of bone density and structure, left thigh (principal); Z78.0 Asymptomatic menopausal state; R73.03 Prediabetes; Z91.89 Other specified personal risk factors, not elsewhere classified; Z72.0 Tobacco use | CPT/HCPCS: 77080 ==

== ENCOUNTER 2022-04-05 12:27 | Emergency (ER) | payer OTHER, MEDICAID, SELFPAY ==
[2022-04-05 12:47] VITALS: BP 150/66; PULSE 71; RESP 18; TEMP 36.4; O2SAT 95; BMI 27.1
--- NOTE | 2022-04-05 12:51 | DI.RAD.S_ITS ---
PROCEDURE: XR CHEST 2V INDICATIONS: cough, sob one month TECHNIQUE: 2 views of the chest were acquired. COMPARISON: [facility], CR, XR CHEST 2V, 02/10/2019, 12:13. FINDINGS: Surgical changes and devices: Cholecystectomy clips. Lungs and pleura: Mild coarsening is present at the pulmonary bases. Mediastinum: Mediastinal contours are normal. Heart size is normal. Bones and chest wall: No suspicious bony abnormalities. Soft tissues appear unremarkable. IMPRESSION: Mild bibasilar coarsening which could represent atelectasis. However, developing airspace disease such as pneumonia cannot be definitively excluded. Dictated by: Shawna Espinal M.D. on 04/05/2022 at 13:06 Approved by: Shawna Espinal M.D. on 04/05/2022 at 13:10
[2022-04-05 13:17] LABS: COVID19 -Nasal RAPID Negative (Negative)
--- NOTE | 2022-04-05 17:14 | ED_ITS ---
HPI - General Adult <Miguel Angel Monzon PA-C - Last Filed: 04/05/22 17:20> General Chief complaint: Upper Respiratory Symptoms Stated complaint: Coughing/Chills Time Seen by Provider: 04/05/22 16:39 Mode of arrival: Family Vehicle History of Present Illness HPI narrative: 76-year-old female with hypertension, hyperlipidemia, obstructive sleep apnea presents to the ED with 3 weeks of worsening cough, fatigue, chills. Patient states that she is coughing up a lot of green phlegm. Patient denies fever, chest pain, shortness of breath, nausea, vomiting, abdominal pain, lightheadedness, dizziness, syncope patient has been taking NyQuil and Mucinex with minimal relief. Related Data Home Medications Medication Instructions Recorded Confirmed diphenhydramine HCl 25 mg tablet 75 mg PO BEDTIME PRN tab 12/05/20 02/16/22 (Allergy Relief (diphenhydramine)) Previous Rx's Medication Instructions Recorded bupropion HCl 150 mg 24 hr tablet, 150 mg PO QAM #90 tab 03/31/22 extended release lurasidone 80 mg tablet (Latuda) 80 mg PO BEDTIME #90 tab 03/31/22 azithromycin 250 mg tablet See Rx Instructions .ROUTE 04/05/22 (Zithromax Z-Jamshid) .COMPLEX #6 tab benzonatate 200 mg capsule 200 mg PO TID PRN #30 cap 04/05/22 Allergies Allergy/AdvReac Type Severity Reaction Status Date / Time iodine Allergy Severe seafood Verified 04/05/22 12:51 HIVES, ANAPHYLAXIS cefotetan Allergy Mild RASH, EDEMA Verified 04/05/22 12:51 morphine AdvReac Mild HALLUCINATI Verified 04/05/22 12:51 ONS Review of Systems <Miguel Angel Monzon PA-C - Last Filed: 04/05/22 17:20> Review of Systems ROS Unobtainable: All systems reviewed & are unremarkable except as noted in HPI and below Constitutional Constitutional: Reports chills, Reports fatigue, Denies fever(s), Denies frequent falls, Denies lethargy and Denies weakness Eyes Eyes: Denies change in vision, Denies eye discharge, Denies irritation and Denies loss of vision ENT Ears, Nose, Mouth, and Throat: Denies change in voice, Denies dizziness, Denies neck pain, Denies sore throat and Denies throat swelling Cardiovascular Cardiovascular: Denies chest pain, Denies irregular heart rhythm, Denies lightheadedness, Denies palpitations, Denies dyspnea, Denies dyspnea on exertion and Denies orthopnea Respiratory Respiratory: Reports cough, Reports excessive phlegm production, Denies dyspnea, Denies dyspnea on exertion and Denies wheezing Gastrointestinal Gastrointestinal: Denies abdominal pain, Denies change in bowel habits, Denies diarrhea, Denies nausea and Denies vomiting Genitourinary Genitourinary: Denies hematuria, Denies flank pain, Denies urinary incontinence and Denies urinary urgency Musculoskeletal Musculoskeletal: Denies back pain, Denies muscle weakness, Denies neck pain, Denies numbness and Denies tingling Integumentary/Breasts Skin/Breast: Denies pruritus, Denies erythema, Denies rash and Denies wounds Neurologic Neurologic: Denies behavioral changes, Denies confusion, Denies dizziness, Denies frequent falls, Denies loss of vision, Denies numbness, Denies tingling and Denies weakness Psychiatric Psychiatric: Denies anxiety, Denies behavioral changes, Denies confusion, Denies depression, Denies homicidal ideation and Denies suicidal ideation Endocrine Endocrine: Reports fatigue, Denies flushing and Denies palpitations Hematologic/Lymphatic Hematologic/Lymphatic: Denies easy bruising Allergic/Immunologic Allergic/Immunologic: Denies urticaria, Denies throat swelling and Denies wheezing Patient History <Miguel Angel Monzon PA-C - Last Filed: 04/05/22 17:20> Medical History (Updated 04/05/22 @ 17:13 by Miguel Angel Monzon PA-C) Depression Essential hypertension with goal blood pressure less than 130/85 (02/06/16) Mixed hyperlipidemia (02/06/16) Obstructive sleep apnea (05/06/03) Plantar fasciitis (11/26/02) Prediabetes Suicide attempt Tobacco abuse Surgical History History of cataract removal with insertion of prosthetic lens Status post laparoscopic cholecystectomy Family History Mother Leukemia DMII (diabetes mellitus, type 2) Father Leukemia Social History Smoking Status: Current every day smoker Tobacco: How many years used: 20 quit status: has quit before second hand exposure: Yes (my smokes too.) alcohol intake: current substance use type: does not use Smoking Status: Current every day smoker alcohol intake frequency: a few times a week Substance Use Type: does not use Exam <Miguel Angel Monzon PA-C - Last Filed: 04/05/22 17:20> Initial Vital Signs Initial Vital Signs: Vital Signs Temperature 97.6 F 04/05/22 12:47 Pulse Rate 71 04/05/22 12:47 Respiratory Rate 18 04/05/22 12:47 Blood Pressure 150/66 H 04/05/22 12:47 Pulse Oximetry 95 04/05/22 12:47 Const General: cooperative, healthy appearing and comfortable HENMT Head: normal to inspection Throat: posterior oropharynx normal Eyes General: Yes appearance normal, both eyes and all related structures Resp Effort & Inspection: normal respiratory effort Auscultation: crackles (Bilateral lower lung phillips) Cardio Rate: regular rate Rhythm: regular rhythm Skin General: no rashes or lesions noted Neuro General: patient alert, patient awake and patient oriented x3 Psych Appearance: grossly normal Mental Status: mental status grossly normal <Roshni Rai MD - Last Filed: 04/06/22 07:25> Initial Vital Signs Initial Vital Signs: Vital Signs Temperature 97.6 F 04/05/22 12:47 Pulse Rate 71 04/05/22 12:47 Respiratory Rate 18 04/05/22 12:47 Blood Pressure 150/66 H 04/05/22 12:47 Pulse Oximetry 95 04/05/22 12:47 Course <Miguel Angel Monzon PA-C - Last Filed: 04/05/22 17:20> Orders Ordered: ED Orders 04/05/22 12:48 COVID19 -Nasal RAPID/Pre-Proc Stat 04/05/22 12:51 XR chest 2V Stat Vital Signs Vital signs: Vital Signs - 8 hr 04/05/22 12:47 Temperature 97.6 F Pulse Rate 71 Respiratory Rate 18 Blood Pressure 150/66 H Pulse Oximetry 95 <Roshni Rai MD - Last Filed: 04/06/22 07:25> Orders Ordered: ED Orders 04/05/22 12:48 COVID19 -Nasal RAPID/Pre-Proc Stat 04/05/22 12:51 XR chest 2V Stat Vital Signs Vital signs: Vital Signs - 8 hr 04/05/22 12:47 Temperature 97.6 F Pulse Rate 71 Respiratory Rate 18 Blood Pressure 150/66 H Pulse Oximetry 95 Medical Decision Making <Miguel Angel Monzon PA-C - Last Filed: 04/05/22 17:20> Lab Data Lab results reviewed: Yes I reviewed the patient's lab results. Lab results narrative: COVID-19 negative Labs: Lab Results 04/05/22 Range/Units 12:48 SARS-CoV-2 (PCR) Negative (Negative) Imaging Data Chest x-ray: Radiologist's Impression: PROCEDURE:? XR CHEST 2V ? INDICATIONS:? cough, sob one month ? TECHNIQUE:? 2 views of the chest were acquired.? ? COMPARISON:? [facility], , XR CHEST 2V, 02/10/2019, 12:13. ? FINDINGS:? ? Surgical changes and devices:? Cholecystectomy clips. ? Lungs and pleura:? Mild coarsening is present at the pulmonary bases. ? Mediastinum:? Mediastinal contours are normal.? Heart size is normal.? ? Bones and chest wall:? No suspicious bony abnormalities.? Soft tissues appear unremarkable.? ? IMPRESSION:? Mild bibasilar coarsening which could represent atelectasis.? However, developing airspace disease such as pneumonia cannot be definitively excluded. ? ? Dictated by: Shawna Espinal M.D. on 04/05/2022 at 13:06 ? ? Approved by: Shawna Espinal M.D. on 04/05/2022 at 13:10 ? [facility] Narrative Medical decision making narrative: 76-year-old female with hypertension, hyperlipidemia, obstructive sleep apnea presents to the ED with 3 weeks of worsening cough, fatigue, chills. Concern for URI versus COVID-19 infection versus pneumonia versus bronchitis. Will obtain COVID-19 test, chest x-ray. Chest x-ray shows possible developing pneumonia versus atelectasis. Will treat for CAP with azithromycin. Will treat cough with Tessalon Perles return precautions were discussed with patient. Patient verbalized understanding. <Roshni Rai MD - Last Filed: 04/06/22 07:25> Lab Data Labs: Lab Results 04/05/22 Range/Units 12:48 SARS-CoV-2 (PCR) Negative (Negative) Discharge Plan Departure Patient Disposition: Home Clinical Impression: CAP (community acquired pneumonia) Instructions: DI for Pneumonia -- Adult Activity Restrictions/Additional Instructions: Were evaluated in the ED today for a cough and chills. Your COVID-19 test was negative. Your chest x-ray did show a possible developing pneumonia, for which you are being prescribed antibiotics. You may also take Tessalon Perles for your cough. Both medications have been sent to your pharmacy in [facility]. Please complete your full course of antibiotics. Return to the ED if you experience chest pain, shortness of breath. Prescriptions: New azithromycin [Zithromax Z-Jamshid] 250 mg tablet See Rx Instructions .ROUTE .COMPLEX Qty: 6 0RF Rx Instructions: For 250 mg dose pack: take 500 mg today (day 1), then 250 mg for 4 days (days 2-5) benzonatate 200 mg capsule 200 mg PO TID PRN (Reason: cough) Qty: 30 0RF No Action Latuda 80 mg tablet 80 mg PO BEDTIME Qty: 90 3RF Rx Instructions: administer with food (at least 350 calories) bupropion HCl 150 mg tablet extended release 24 hr 150 mg PO QAM Qty: 90 3RF diphenhydramine HCl [Allergy Relief(diphenhydramin)] 25 mg tablet 75 mg PO BEDTIME PRN (Reason: insomnia) 0RF Referrals: Heron Sanchez MD [Primary Care Provider] - <Roshni Rai MD - Last Filed: 04/06/22 07:25> Cosign ED Attending Bettyature Attestation: I was immediately available in the department for consultation throughout this patient's visit. I agree with documentation as above. Roshni Rai MD
[2022-04-05 17:20] VITALS: BP 145/75; PULSE 70; RESP 16; O2SAT 97
== END 2022-04-05 17:21 | disposition home or self-care (01) ==
PROVIDERS: Emergency Medicine; Emergency Provider Student in an Organized Health Care Education/Training Program; PCP Student in an Organized Health Care Education/Training Program
DX: J18.9 Pneumonia, unspecified organism (principal); Z20.822 Contact with and (suspected) exposure to COVID-19
CPT/HCPCS: 71046; 87635; 99282; 99283; C9803

== ENCOUNTER → 2022-12-13 13:49 | Outpatient (CLI) | payer OTHER, MEDICAID, SELFPAY ==
[2022-12-13 14:30] LABS: Appearance Urine UA CLEAR; Bilirubin Urine UA NEGATIVE (NEGATIVE); Color Urine UA YELLOW; Glucose Urine UA NEGATIVE (Negative); Ketones Urine UA NEGATIVE (NEGATIVE); Leukocyte Esterase Urine UA NEGATIVE (NEGATIVE); Nitrite Urine UA NEGATIVE (Negative); Occult Blood Urine UA 1+ (Negative); Protein Urine UA NEGATIVE (Negative); Specific Gravity Urine UA <=1.005 (1.000-1.035); Urobilinogen Urine UA 0.2 E.U./dL (0.2); pH Urine UA 6.5 (4.5-8.0)
[2022-12-13 14:40] LABS: Bacteria Urine None Seen; Culture Indicated Urine Cult Not Indicated; RBC Urine 0-1/HPF (0-5/HPF); Squamous Epithelial Cell Urine None Seen (0-5/HPF); WBC Urine None Seen (0-5/HPF)
== END ==
PROVIDERS: PCP Student in an Organized Health Care Education/Training Program; Referring Provider Student in an Organized Health Care Education/Training Program; Visit Provider Student in an Organized Health Care Education/Training Program
DX: R32 Unspecified urinary incontinence (principal)
CPT/HCPCS: 81001

== ENCOUNTER → 2023-12-23 07:59 | Outpatient (CLI) | payer OTHER, MEDICAID, SELFPAY ==
[2023-12-23 09:15] LABS: Add Manual Diff / Slide Review NO; Basophils Absolute Auto 100 /uL (0-100); Basophils Percent Auto 1.1 % (0-2); Eosinophils Absolute Auto 200 /uL (0-450); Eosinophils Percent Auto 3.3 % (2-4); Hematocrit 43.6 % (36-46); Hemoglobin 14.7 g/dL (12.0-16.0); Lymphocytes Absolute Auto 1900 /uL (1100-4500); Lymphocytes Percent Auto 29.5 % (25-40); Mean Corpuscular HGB Conc 33.9 % (30-36); Mean Corpuscular Hemoglobin 32.6 PG (26-34); Mean Corpuscular Volume 96.3 fL (80-100); Monocytes Absolute Auto 400 /uL (0-900); Monocytes Percent Auto 6.7 % (3-14); Neutrophils Absolute Auto 3800 /uL (1500-7000); Neutrophils Percent Auto 59.4 % (50-75); Platelet Count 172 X10^3/uL (150-400); Red Blood Cell Count 4.52 X10^6/uL (4.0-5.2); Red Cell Distribution Width 14.9 % (11.6-14.8); White Blood Cell Count 6.4 X10^3/uL (4.5-11.0)
[2023-12-23 09:27] LABS: Alanine Aminotransferase 13 IU/L (<35); Albumin 4.2 g/dL (3.5-5.0); Albumin Globulin Ratio 1.3 (1.0-2.8); Alkaline Phosphatase 72 U/L (38-126); Aspartate Aminotransferase 20 IU/L (14-36); BUN Creatinine Ratio 17.8 (6-22); Bilirubin Total 0.7 mg/dL (0.2-1.3); Blood Urea Nitrogen 16 mg/dL (7-17); Calcium 9.4 mg/dL (8.4-10.2); Carbon Dioxide 31 mmol/L (22-32); Chloride 102 mmol/L (98-107); Cholesterol 244 mg/dL (140-199); Estimated Glomerular Filt Rate > 60 mL/min (>60); Globulin 3.3 g/dL (1.7-4.1); Glucose 101 mg/dL (80-110); HDL Cholesterol 56 mg/dL (40-60); HEMOLYSIS < 15 (0-50); LDL Cholesterol Calculated 163 mg/dL (<100); Sodium 140 mmol/L (137-145); Total Protein 7.5 g/dL (6.3-8.2); Triglycerides 124 mg/dL (35-150)
[2023-12-23 09:42] LABS: Vitamin D 25 Hydroxy (D3) 25.1 ng/mL (30.0-100.0)
[2023-12-25 05:36] LABS: x Labcorp Estim. Avg Glu (eAG) 126 mg/dL (.)
== END ==
PROVIDERS: PCP Family Medicine; Referring Provider Family Medicine; Visit Provider Family Medicine
DX: R32 Unspecified urinary incontinence (principal); I10 Essential (primary) hypertension; E55.9 Vitamin D deficiency, unspecified; E78.2 Mixed hyperlipidemia; R73.03 Prediabetes
CPT/HCPCS: 36415; 80053; 80061; 82306; 83036; 85025